=== PATIENT | male | born 1995 | race African-American/Black ===

== ENCOUNTER 2017-09-19 18:35 | Emergency (ER) | payer SELFPAY ==
[~2017-09-19] VITALS: Ht 188 cm; Wt 86.6 kg
[~2017-09-19 18:35] MED LIST: NKM; TYLENOL EXTRA500 MG ORAL
[2017-09-19 18:47] VITALS: BP 112/67
--- NOTE | 2017-09-19 18:59 | Emergency Room Report ---
History of Present Illness General Chief Complaint: General Complaint Source: Patient Present Illness HPI 22-year-old male patient presents the ER requesting cast change on his arm. Reports that he has a boxer fracture of the fourth and fifth digit that occurred over the weekend. Reports there is out of town when the injury occurred. Requesting heart cast be placed until he can follow with his family services specialist. Denies new or worsening of symptoms. Allergies: Coded Allergies: No Known Allergies (Unverified , 02/24/16) Patient History Past Medical History: see triage record Reviewed Nursing Documentation: PMH: Agreed; PSxH: Agreed Nursing Documentation-PMH Past Medical History: No Stated History Review of Systems All Other Systems: negative except mentioned in HPI Physical Exam Vital Signs Date Time Temp Pulse Resp B/P (MAP) Pulse Ox O2 Delivery O2 Flow Rate FiO2 09/19/17 18:42 98.0 58 18 112/67 96 Room Air 98.1 Sp02 EP Interpretation: reviewed, normal General Appearance: well appearing, no apparent distress, alert, GCS 15, non- toxic Head: normocephalic, atraumatic Respiratory: lungs clear, normal breath sounds, no rhonchi, no respiratory distress, no accessory muscle use, no wheezing, speaking full sentences Cardiovascular #1: regular rate, rhythm, no edema Musculoskeletal: back normal, digits/nails normal, gait/station normal, decreased range of motion, tender Psychiatric: mood/affect normal Medical Decision Making PA Attestation Dr. Garibay is my supervising Physician whom patient management has been discussed with. Diagnostic Impression: Primary Impression: Injury of hand ER Course Pt. presents to the ED requesting cast change on boxer's fracture. Vital signs: are WNL, pt. is afebrile Ordered X-ray and pain medication. ER COURSE Informed patient do not have hard casts in ER, need to followup with PCP or family services specialist. Patient requesting new splint placed. Current splint removed. Ulnar gutter splint applied and was checked afterwards by me showing good alignment and support with distal neurovascular functioning intact. Patient instructed on RICE method: rest, ice, compression, elevation. F/u with ortho for hard cast and further treatment and management. Pt reports will followup, has appointment. DISCHARGE: At this time pt. is stable for d/c to home. Patient is resting comfortably, in no acute distress, nontoxic appearing, talking without difficulty. Will provide printed patient care instructions, and any necessary prescriptions. Patient instructed to follow with primary care provider in 3 - 5 days and to request further orthopedic follow-up. Care plan and follow up instructions have been discussed with the patient prior to discharge. Take medications as directed. Patient questions asked and answered. Patient reports understanding and agreement to treatment plan. ER precautions given, patient instructed to return to ER immediately for any new or worsening of symptoms. - Please note that this Emergency Department Report was dictated using [employer] operator technology software, occasionally this can lead to erroneous entry secondary to interpretation by the dictation equipment. Last Vital Signs Date Time Temp Pulse Resp B/P (MAP) Pulse Ox O2 Delivery O2 Flow Rate FiO2 09/19/17 18:47 98.1 62 18 112/67 96 Room Air 98.1 Disposition: HOME, SELF-CARE Condition: Stable Patient Instructions: Boxer's Fracture Additional Instructions: Patient instructed to follow up with primary care provider and discuss further referral to orthopedics. Patient instructed on RICE method: rest, ice, compression, elevation. Patient instructed to NWB. Take medications as directed by previous provider. Patient questions asked and answered. ER precautions given, patient instructed to return to ER immediately for any new or worsening of symptoms. Gil Leal September 19, 2017 18:59
[2017-09-19 20:07] VITALS: BP 112/67
== END 2017-09-19 20:30 | disposition home or self-care (01) ==
LOC: EMR 19:16
DX: S62.604D Fracture of unspecified phalanx of right ring finger, subsequent encounter for fracture with routine healing (principal); S62.606D Fracture of unspecified phalanx of right little finger, subsequent encounter for fracture with routine healing; X58.XXXD Exposure to other specified factors, subsequent encounter
CPT/HCPCS: 29125; 99283

== ENCOUNTER 2017-09-29 18:05 | Emergency (ER) | payer OTHER ==
[~2017-09-29] VITALS: Ht 182.9 cm; Wt 83.9 kg
[2017-09-29 18:18] VITALS: BP 121/68
--- NOTE | 2017-09-29 19:02 | Diagnostic Imaging Report ---
EXAM: XR Right Hand Complete, 3 or More Views CLINICAL HISTORY: PAIN TECHNIQUE: Frontal, lateral and oblique views of the right hand. COMPARISON: No relevant prior studies available. FINDINGS: Bones/joints: Boxer's fracture. Fracture of the distal aspect of the fifth metacarpal. Soft tissues: Soft tissue swelling. IMPRESSION: Boxer's fracture. Fracture of the distal aspect of the fifth metacarpal.
[2017-09-29] MEDS ORDERED: IBUPROFEN600 MG ORAL (19:10)
--- NOTE | 2017-09-29 19:10 | Emergency Room Report ---
History of Present Illness General Chief Complaint: Upper Extremity Injury Source: Patient Present Illness HPI 22-year-old male presents to the emergency department complaining of 8 out of 10 in severity pain to the lateral aspect of the right hand in addition to his splints up falling off approximately one hour prior to arrival. Patient states that he sustained boxer's fracture almost 2 weeks ago. Patient states he was seen here in the emergency department for splint placement one week ago and his splint fell off today. Patient denies new trauma or fall. Patient reports difficulty straightening his right pinky he denies paresthesias. Patient is requesting replacement splint. Patient states that his orthopedic appointment is next week. Allergies: Coded Allergies: No Known Allergies (Unverified , 02/24/16) Patient History Past Medical History: see triage record Past Surgical History: none Pertinent Family History: none Reviewed Nursing Documentation: PMH: Agreed; PSxH: Agreed Nursing Documentation-PM Past Medical History: No Stated History Review of Systems All Other Systems: negative except mentioned in HPI Physical Exam Vital Signs Date Time Temp Pulse Resp B/P (MAP) Pulse Ox O2 Delivery O2 Flow Rate FiO2 09/29/17 18:11 98.1 58 20 119/61 99 Room Air 98.1 Sp02 EP Interpretation: reviewed, normal General Appearance: no apparent distress, alert, GCS 15, non-toxic Head: normocephalic, atraumatic ENT: hearing grossly normal, normal voice Respiratory: lungs clear, normal breath sounds, speaking full sentences Cardiovascular #1: regular rate, rhythm, normal capillary refill Musculoskeletal: back normal, gait/station normal, normal range of motion, tender - ttp to the lateral aspect of the left hand. no bruises, swelling noted. Neurologic: alert, oriented x3, responsive, motor strength/tone normal, sensory intact, normal gait, speech normal, grossly normal Psychiatric: judgement/insight normal Skin: normal color, no rash, warm/dry, well hydrated Medical Decision Making PA Attestation Dr. Chavez is my supervising Physician whom patient management has been discussed with. Diagnostic Impression: Primary Impression: Boxer's fracture with malunion Qualified Codes: S62.339P - Displaced fracture of neck of unspecified metacarpal bone, subsequent encounter for fracture with malunion Additional Impression: Fracture follow-up ER Course 22-year-old male presents to the emergency department complaining of 8 out of 10 in severity pain to the lateral aspect of the right hand in addition to his splints up falling off approximately one hour prior to arrival. Patient states that he sustained boxer's fracture almost 2 weeks ago. Patient states he was seen here in the emergency department for splint placement one week ago and his splint fell off today. Patient denies new trauma or fall. Patient reports difficulty straightening his right pinky he denies paresthesias. Patient is requesting replacement splint. Patient states that his orthopedic appointment is next week. Ddx considered but are not limited to Fracture, dislocation, contusion, Sprain/ Strain/Spasm, nerve damage/injury just to name a few. Vital signs: are WNL, pt. is afebrile H&PE are most consistent with musculoskeletal injury will perform imaging to r/ o fractures/dislocations. ORDERS: - X-ray: 5th metacarpal fx, moderately displaced, ossifications noted appears healing. ED INTERVENTIONS: - norco PO - Ulnar gutter Splint applied to the right hand by refinish technician. Pt. remains neurovascularly intact. - Right arm Sling applied by refinish technician. Pt. remains neurovascularly intact. DISCHARGE: At this time pt. is stable for d/c to home. Will provide printed patient care instructions, and any necessary prescriptions. Care plan and follow up instructions have been discussed with the patient prior to discharge. Other X-Ray Diagnostic Results Other X-Ray Diagnostic Results : X-Ray ordered: Right Hand # of Views/Limited Vs Complete: 3 View Indication: Pain EP Interpretation: Yes PA Xray: Interpretation reviewed Interpretation: no dislocation, other - 5th metacarpal fx, moderately displaced, ossifications noted appears healing. Impression: Other - abnormal Electronically Signed by: Anika Galloway PA-C Last Vital Signs Date Time Temp Pulse Resp B/P (MAP) Pulse Ox O2 Delivery O2 Flow Rate FiO2 09/29/17 18:18 98.1 78 18 121/68 100 Room Air 98.1 Disposition: HOME, SELF-CARE Condition: Stable Scripts Ibuprofen* (MOTRIN*) 600 Mg Tablet 600 MG ORAL THREE TIMES A DAY, #20 TAB 0 Refills Prov: Anika Galloway 09/29/17 Referrals: NON PHYSICIAN (PCP) Patient Instructions: Boxer's Fracture Additional Instructions: Take medications as directed. Follow up with an STAMP CLASSIFIER in 3-5 days, even if your symptoms have resolved. --Please review list of primary care clinics, if you do not already have a primary care provider who can give you an Orthopedic Referral. Return sooner to ED if new symptoms occur, or current symptoms become worse. - Please note that this Emergency Department Report was dictated using [employer] boiler operator technology software, occasionally this can lead to erroneous entry secondary to interpretation by the dictation equipment. Anika Galloway September 29, 2017 19:10
[2017-09-29] MEDS ORDERED: Norco 5mg/325mg tab ORAL ONE (19:45)
[2017-09-29 20:00] VITALS: BP 121/68
== END 2017-09-29 20:00 | disposition home or self-care (01) ==
LOC: EMR 18:28
DX: S62.396 Other fracture of fifth metacarpal bone, right hand (principal); X58.XXXD Exposure to other specified factors, subsequent encounter
CPT/HCPCS: 29125; 99283